=== PATIENT | male | born 1950 ===

== ENCOUNTER → 2017-03-18 | Outpatient (CLI) | payer BC ==
--- NOTE | 2017-03-18 16:03 | DIAGNOSTIC IMAGING REPORT ---
LEFT KNEE 2 VIEWS HISTORY: LEFT KNEE PAIN COMPARISON: None. FINDINGS: There is no fracture or dislocation. Soft tissues are unremarkable. No significant knee effusion. No intra-articular loose bodies identified. Minimal cartilage space narrowing and a small marginal osteophyte within the medial compartment of the left knee. No radiopaque foreign bodies. IMPRESSION: No fractures. Minimal osteoarthritis within the medial compartment. Electronically signed by: Joao Weir M.D. 03/18/2017 4:01 PM Dictated Date/Time: 03/18/2017 4:00 PM
== END | disposition home or self-care (01) ==
LOC: C.RAD1850 15:50
PROVIDERS: ATTEND Family Medicine
DX: M25.562 Pain in left knee (principal)